=== PATIENT | female | born 1990 | race Caucasian/White ===

== ENCOUNTER 2019-10-13 10:35 | Emergency (ER) | payer BC ==
[~2019-10-13] VITALS: Ht 167.6 cm; Wt 61.2 kg
[2019-10-13 10:39] VITALS: BP 121/97
--- NOTE | 2019-10-13 11:29 | NUR ---
CALLED FROM WAITING ROOM, NO ANSWER
--- NOTE | 2019-10-13 11:42 | NUR ---
CALLED FROM WAITING ROOM, NO ANSWER
--- NOTE | 2019-10-13 12:04 | NUR ---
CALLED FROM WAITING ROOM , NO ANSWER
== END 2019-10-13 12:08 | disposition left against medical advice (07) ==
LOC: ER 10:36 → EDBD 10:36 → ER 12:08
DX: R10.9 Unspecified abdominal pain (principal); Z53.21 Procedure and treatment not carried out due to patient leaving prior to being seen by health care provider